=== PATIENT | male | born 1955 | race Hispanic/Latino ===

== ENCOUNTER 2024-10-03 12:00 | Inpatient (IN) | payer OTHER ==
[~2024-10-03] VITALS: Ht 170.2 cm; Wt 76.4 kg
[2024-10-03 13:24] LABS: BASOPHILS # (AUTO) 0.05 K/uL (0.00-0.20); BASOPHILS % (AUTO) 0.6 % (0.0-5.0); EOSINOPHILS # (AUTO) 0.09 K/uL (0.00-0.70); EOSINOPHILS % (AUTO) 1.1 % (0.0-8.0); HEMATOCRIT 40.8 % (42-54); IMMATURE GRANULOCYTE ABSOLUTE 0.04 K/uL (0-1); LYMPHOCYTES # (AUTO) 1.2 K/uL (1.0-4.8); LYMPHOCYTES % (AUTO) 15.3 % (21.0-51.0); MEAN CORPUSCULAR HEMOGLOBIN 31.7 pg (27.0-33.0); MEAN CORPUSCULAR HGB CONC 34.3 g/dL (32.0-36.0); MEAN CORPUSCULAR VOLUME 92.3 fL (79-99); MONOCYTES # (AUTO) 0.8 K/uL (0.1-1.0); MONOCYTES % (AUTO) 9.6 % (3.0-13.0); NEUTROPHILS # (AUTO) 5.8 K/uL (1.8-7.7); NEUTROPHILS % (AUTO) 72.9 % (40.0-77.0); PLATELET COUNT (AUTO) 321 K/uL (130-400); RED BLOOD CELL COUNT(AUTO) 4.42 MIL/uL (4.50-6.20); RED CELL DISTRIBUTION WIDTH 13.3 % (11.0-15.5); WHITE BLOOD COUNT (AUTO) 7.9 K/uL (4.8-10.8)
[2024-10-03 13:33] VITALS: BP 133/63; PULSE 81; RESP 18; TEMP 97.8
[2024-10-03 13:38] LABS: INR 0.96 (0.85-1.15); PROTHROMBIN TIME 10.4 SEC (9.6-11.6)
[2024-10-03 13:40] LABS: PARTIAL THROMBOPLASTIN TIME 25.9 SEC (26.3-35.5)
[2024-10-03 13:51] LABS: ALBUMIN 3.7 g/dL (3.5-5.0); BILIRUBIN,TOTAL 0.4 mg/dL (0.2-1.0); CREATININE 1.1 mg/dL (0.5-1.3)
[2024-10-03] MEDS ORDERED: ASPI-1443 PO (14:09)
[2024-10-03] MEDS ORDERED: ATOR40TA69 PO (14:09)
[2024-10-03] MEDS ORDERED: TAMS-1 PO (14:09)
[2024-10-03] MEDS ORDERED: CYAN50009 PO (14:09)
[2024-10-03] MEDS ORDERED: GLIP5TAB15 PO (14:09)
[2024-10-03] MEDS ORDERED: LEVO75CA5 PO (14:09)
[2024-10-03] MEDS ORDERED: LISI5TAB21 PO (14:09)
[2024-10-03] MEDS ORDERED: METF-446 PO (14:09)
[2024-10-03] MEDS ORDERED: ERGO500093 PO (14:09)
--- NOTE | 2024-10-03 21:42 | EKG ---
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
--- NOTE | 2024-10-06 12:27 | NUR ---
RE: EKG REPORTED EKG RESULTS TO DR CARLOS, NO NEW ORDERS RECEIVED.
[2024-10-07] VITALS (17 sets, daily range): BP systolic 132–202; BP diastolic 65–86; PULSE 63–95; RESP 15–18; TEMP 96.9–97.3
[2024-10-07] MEDS ORDERED: INVANZ 1GM+NS 50ML IVPB 50 ML IV SCH (06:00)
[2024-10-07] MEDS ORDERED: INVANZ 1GM+NS 50ML IVPB 50 ML IV ONE (08:30)
[2024-10-07] MEDS: LACTATED RINGERS 1000ML 1,000 ML IV ONE (10:52)
[2024-10-07] MEDS: MEROPENEM 1 GM VIAL ONE (10:52)
[2024-10-07] MEDS ORDERED: BUPIvacaine/PF 0.25% 30ML VIAL IJ ONE (12:56)
[2024-10-07] MEDS ORDERED: LIDOCAINE 1%-EPI 1:100,000 20 ML VIAL ONE (12:57)
[2024-10-07] MEDS ORDERED: MIDAZOLAM HCL 1 MG/ML 2ML VIAL ONE (13:40)
[2024-10-07] MEDS ORDERED: ondanSETRON 4MG INJ ONE (13:40)
[2024-10-07] MEDS ORDERED: rocuRONium bROMide 10MG/1ML 5ML VL ONE (13:40)
[2024-10-07] MEDS ORDERED: proPOFol 10 MG/ML 20ML VIAL IV ONE (13:40)
[2024-10-07] MEDS ORDERED: LIDOCAINE PF 100MG/5ML (2%) SYRINGE 5ML ONE (13:41)
[2024-10-07] MEDS ORDERED: FENTanyl CITRate PF 50 MCG/1 ML 5ML AMP IV ONE (13:41)
[2024-10-07] MEDS ORDERED: GLYCOPYRROLATE 0.2 MG/ML 5 ML VIAL ONE (13:45)
[2024-10-07] MEDS ORDERED: NEOSTIGMINE METHYLSULFATE 1MG/ML IV ONE (13:45)
[2024-10-07] MEDS ORDERED: SUGAMMADEX SODIUM 200 MG/2 ML VIAL IV ONE (15:12)
[2024-10-07] MEDS: LAbetaLOL 20MG VIAL ONE (15:58)
[2024-10-07] MEDS: MEPERIDINE-PF 25 MG/ML SYG ONE (16:11)
--- NOTE | 2024-10-07 16:23 | OP ---
Operative Note: DATE OF PROCEDURE: 10/07/24 SURGEON: ELDER MASON MD MANAGEMENT PROFESSIONAL: None ANESTHESIA: General ANESTHESIOLOGIST/IRRIGATION ENGINEER: IRRIGATION ENGINEER PREOPERATIVE DIAGNOSIS: Rectosigmoid Cancer POSTOPERATIVE DIAGNOSIS: Mid-Low Rectal Cancer PROCEDURE: Diagnostic Laparoscopy Flexible Sigmoidoscopy ESTIMATED BLOOD LOSS: Minimal INDICATIONS: Mr. 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 He was offered surgical management and wished to proceed. Complications, alternatives risk and benefits of the procedure were discussed and include but not limited to infection, bleeding, injury to surrounding structures such as blood vessels nerves and other organs, anastomotic leak, sepsis, need for a stoma, recurrence of disease and the need for additional procedures. He and the daughter voiced understanding and wished to proceed with surgery. All of their questions were answered to their satisfaction. DESCRIPTION OF PROCEDURE: After informed consent was obtained the patient was taken to the operating room and laid in the supine position. Once GETA was achieved, the abdomen was prepped and draped in the usual sterile fashion. A timeout was performed to confirm the correct patient and procedure. Next a veress needle was inserted and confirmed to be intra-abdominal with a saline drop test . Pneumoperitoneum was obtained. Next a 8mm incision was made followed by placement of an 8mm trocar. The camera was inserted and the abdomen was inspected. we then placed the additional robotic trocars. The patient was placed into steep [place]. The sigmoid colon was adherent to the left pelvic sidewall. We carefull examined the distal sigmoid and upper rectum however there was no tattoo appreciated. Given this we performed a flexible sigmoidoscopy which showed a low rectal mass just proximal to the 1st rectal valve at the level of the prostate. The mass was then palpated on JOI and was anterior and firm. Given the location of the lesion within the distal mid rectum anteriorly over the prostate it was decided to not proceed with a resection at this time. We then placed the scope back into the abdomen to confirm hemostasis. The trocars were removed, a vicryl stitch closed the 12mm port site. We closed all skin incisions with monocryl sutures and dermabond was placed as a sterile dressing. The patient tolerated the procedure well and was taken to the recovery room in stable condition. Complications none Specimens: none Counts: reported as correct x2 by nursing staff. Note: I discussed the above in detail with the daughter, we discussed that we n eed to stage the pelvis given he has a distal mid rectal cancer and not a colon or upper rectal cancer. He did have prior XRT for prostate cancer however he would benefit from MRI of the pelvis and Endorectal US to stage the pelvis and likely benefit from Chemotherapy prior to surgery. Patient will also need a temporary stoma given location and prior XRT. The daughter voiced understanding and appreciation for our care. ELDER MASON MD Oct 07, 2024 16:23
--- NOTE | 2024-10-07 17:30 | NUR ---
D/C PT AND DAUGHTER GIVEN D/C INSTRUCTIONS. DAUGHTER VOICED UNDERSTANDING. ABDOMEN FREE FROM BLEEDING OR HEMATOMAS. PT DENIED ANY DISCOMFORT. PT TAKEN OUT VIA W/C DAUGHTER AT SIDE.
== END 2024-10-07 17:30 | disposition home or self-care (01) | DRG 358 ==
LOC: DAHIP 10-07 09:39
PROVIDERS: ADMIT Surgery; ATTEND Surgery
PROC: 0DJD8ZZ Inspection of Lower Intestinal Tract, Via Natural or Artificial Opening Endoscopic (ICD-10-PCS; principal; 2024-10-07 14:25)
PROC: 0WJG4ZZ Inspection of Peritoneal Cavity, Percutaneous Endoscopic Approach (ICD-10-PCS; 2024-10-07 14:25)
DX: C19 Malignant neoplasm of rectosigmoid junction (principal)
CPT/HCPCS: 36415; 45330; 80053; 82948; 85025; 85610; 85730; 86850; 86900; 86901; 93005; A4344; G0378; J1335; J2003; J2175; J2185; J2250; J2405; J2704; J2710; J3010; J3490; J7030; J7120; A4215; A4221; A4222; A4223; A4600; A4649; A4663; A4930; A6260; C1769; J0665

== ENCOUNTER → 2024-10-09 | Outpatient (CLI) | payer OTHER ==
[~2024-10-09] MED LIST: ASPI-1443 PO; ATOR40TA69 PO; CYAN50009 PO; ERGO500093 PO; GADOTERATE MEGLUMINE 10 MMOL/20 ML VIAL IV ONE; GLIP5TAB15 PO; LEVO75CA5 PO; LISI5TAB21 PO; METF-446 PO; TAMS-1 PO
--- NOTE | 2024-10-09 12:23 | HMCIMG ---
MR PELVIS W/WO CON HISTORY: Malignant neoplasm of rectum COMPARISON: None TECHNIQUE: MRI of the pelvis was performed utilizing multiple pulse sequences in axial, coronal and sagittal planes. Patient was given 20 cc of Clariscan through intravenous route. FINDINGS: Left hip muscle atrophy is seen. Bladder is poorly distended. Bladder wall thickening is seen measuring 9.5 mm. There is rectal wall thickening with enhancement measuring 11 mm thickness may be related to neoplastic process. There is no evidence of pelvic adenopathy or ascites. Tiny bilateral hip joint effusions are seen. IMPRESSION: 1. Left hip muscle atrophy. Rectal wall thickening with enhancement measuring 11 mm may be related to neoplastic process. There is no evidence of pelvic adenopathy or ascites.
== END | disposition home or self-care (01) ==
LOC: RAH 09:18
PROVIDERS: ATTEND Surgery
DX: C20 Malignant neoplasm of rectum (principal); M62.58 Muscle wasting and atrophy, not elsewhere classified, other site; N32.89 Other specified disorders of bladder; M25.452 Effusion, left hip; M25.451 Effusion, right hip
CPT/HCPCS: 72197; A9575

== ENCOUNTER → 2025-04-16 | Outpatient (CLI) | payer OTHER ==
[~2025-04-16] MED LIST changes: -LEVO75CA5 PO; +LEVO75CA6 PO; -TAMS-1 PO; +TAMS-55 PO
--- NOTE | 2025-04-16 15:58 | HMCIMG ---
MR PELVIS W/WO CON HISTORY: Malignant neoplasm of rectum COMPARISON: 10/09/2024 TECHNIQUE: MRI of the pelvis was performed utilizing multiple pulse sequences in axial, coronal and sagittal planes. Patient was given 16 cc of Clariscan through intravenous route. FINDINGS: There is hyperintense/enhancing focus measuring 2.8 x 2.5 cm the right anterior rectal wall suspicious for neoplastic process which was also seen on previous study. There is circumferential rectal wall thickening. Prostate gland is borderline enlarged measuring 6 x 3.6%. Bladder wall is thickened measuring 10 mm. There is fatty replacement change of the left hip and left buttock musculature. There is diverticulosis. IMPRESSION: 1. An enhancing focus in the right anterior rectal wall measuring 2.8 x 2.6 cm suggestive of neoplastic process. Circumferential rectal wall thickening is also seen. Enlarged prostate with bladder wall thickening. Findings are grossly unchanged.
== END | disposition home or self-care (01) ==
LOC: RAH 13:53
PROVIDERS: ATTEND Surgery
DX: C20 Malignant neoplasm of rectum (principal); C61 Malignant neoplasm of prostate; N40.0 Benign prostatic hyperplasia without lower urinary tract symptoms; K57.90 Diverticulosis of intestine, part unspecified, without perforation or abscess without bleeding; Z96.642 Presence of left artificial hip joint
CPT/HCPCS: 72197; A9575

== ENCOUNTER → 2025-08-17 | Outpatient (CLI) | payer OTHER ==
[~2025-08-17] VITALS: Ht 170.2 cm; Wt 73.8 kg
[~2025-08-17] MED LIST changes: +CINN500C PO; +ERGO400C PO; -GADOTERATE MEGLUMINE 10 MMOL/20 ML VIAL IV ONE; -LEVO75CA6 PO; +VITA-395 PO
[2025-08-17 14:13] VITALS: BP 100/46; PULSE 85; RESP 18; TEMP 98.2
[2025-08-17 14:30] LABS: IMMATURE GRANULOCYTE ABSOLUTE 0.06 K/uL (0-1); NUCLEATED RED BLOOD CELLS 0.0 % (0.0-0.19); PLATELET COUNT (AUTO) 309 K/uL (130-400); RED BLOOD CELL COUNT(AUTO) 3.88 MIL/uL (4.50-6.20); RED CELL DISTRIBUTION WIDTH 13.5 % (11.0-15.5); WHITE BLOOD COUNT (AUTO) 7.0 K/uL (4.8-10.8)
[2025-08-17 14:37] LABS: INR <= 0.93 (0.85-1.15)
[2025-08-17 14:43] LABS: ASPARTATE AMINOTRANSFERASE 13.0 U/L (10-37); CREATININE 4.0 mg/dL (0.5-1.3); GLOMERULAR FILTR. RATE CALC 15.0 mL/min (>90); GLUCOSE,RANDOM 90.0 mg/dL (70-105); SODIUM SERUM 133.0 mmol/L (136-145); TOTAL PROTEIN, SERUM 7.9 g/dL (6.0-8.3); UREA NITROGEN, BLOOD 73.0 mg/dL (7-18)
--- NOTE | 2025-08-17 15:10 | NUR ---
RE: POTASSIUM CALLED DR KHAN AND REPORTED POTASSIUM 6.0. RECEIVED ORDERS TO SEND PATIENT TO ER. CALLED PATIENT, NO ANSWER. LEFT MESSAGE.
--- NOTE | 2025-08-17 16:22 | EKG ---
[facility] Test Date: 2025-08-17 Test Time: 13:57:41 Pat Name: YOVANY TURNER Department: Patient ID: [facility] [place]-[id number] Room: Gender: M Jewel Oliving Machine Operator: [id number] : 1955 Requested By: HELGA KHAN Order Number: [id number] Reading MD: Ángela Sidhu Measurements Intervals [place] Rate: 80 P: 67 [place]: 193 QRS: 53 QRSD: 109 T: -58 QT: 358 QTc: 413 Interpretive Statements Sinus rhythm Compared to ECG 06/18/2025 15:00:38 Left ventricular hypertrophy no longer present Early repolarization no longer present Electronically Signed On 08-19-2025 09:33:43 CDT by Ángela Sidhu Please click the below link to view image of tracing.
== END | disposition home or self-care (01) ==
LOC: DAH 13:31 → EDSTATUS 08-19 07:00
PROVIDERS: ATTEND Surgery
DX: Z93.2 Ileostomy status (principal)
CPT/HCPCS: 36415; 80053; 82948; 85025; 85610; 85730; 86850; 86900; 86901; 93005

== ENCOUNTER 2025-08-28 08:00 | Inpatient (IN) | payer OTHER ==
[~2025-08-28] VITALS: Ht 170.2 cm; Wt 72.6 kg
[~2025-08-28 08:00] MED LIST changes: -CINN500C PO; -ERGO400C PO; -VITA-395 PO
[2025-08-28 09:51] LABS: IMMATURE GRANULOCYTE ABSOLUTE 0.07 K/uL (0-1); NUCLEATED RED BLOOD CELLS 0.0 % (0.0-0.19); PLATELET COUNT (AUTO) 233 K/uL (130-400); RED BLOOD CELL COUNT(AUTO) 3.32 MIL/uL (4.50-6.20); RED CELL DISTRIBUTION WIDTH 14.2 % (11.0-15.5); WHITE BLOOD COUNT (AUTO) 7.9 K/uL (4.8-10.8)
[2025-08-28 10:05] LABS: ASPARTATE AMINOTRANSFERASE 13.0 U/L (10-37); CREATININE 1.4 mg/dL (0.5-1.3); GLOMERULAR FILTR. RATE CALC 53.0 mL/min (>90); GLUCOSE,RANDOM 131.0 mg/dL (70-105); SODIUM SERUM 139.0 mmol/L (136-145); TOTAL PROTEIN, SERUM 7.0 g/dL (6.0-8.3); UREA NITROGEN, BLOOD 23.0 mg/dL (7-18)
[2025-08-28 10:06] LABS: INR <= 0.93 (0.85-1.15)
[2025-08-28 10:14] VITALS: BP 147/57; PULSE 82; RESP 18; TEMP 98.1
--- NOTE | 2025-08-28 10:25 | EKG ---
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
--- NOTE | 2025-08-28 12:00 | NUR ---
RE: EKG REPORTED EKG RESULTS TO DR CARLOS. NO NEW ORDERS RECEIVED, OK TO PROCEED.
--- NOTE | 2025-08-28 14:04 | NUR ---
RE: LABS REPORTED HGB 9.9/HCT 29.9 TO MARIANNE/DR YOANNA CRUZ. NO NEW ORDERS RECEIVED.
[2025-08-31] VITALS (30 sets, daily range): BP systolic 100–145; BP diastolic 40–75; PULSE 60–82; RESP 12–18; TEMP 97–98.1; O2SAT 97–99
[2025-08-31] MEDS ORDERED: GLYCOPYRROLATE 0.2 MG/ML 5 ML VIAL ONE (08:03)
[2025-08-31] MEDS ORDERED: SUCCINYLCHOLINE CHLORIDE 20 MG/ML 10 ML VIAL ONE (08:03)
[2025-08-31] MEDS ORDERED: LIDOCAINE PF 100MG/5ML (2%) SYRINGE 5ML ONE (08:03)
[2025-08-31] MEDS ORDERED: NEOSTIGMINE METHYLSULFATE 1MG/ML IV ONE (08:03)
[2025-08-31] MEDS ORDERED: MIDAZOLAM HCL 1 MG/ML 2ML VIAL ONE (08:04)
[2025-08-31] MEDS ORDERED: LIDOCAINE HCL 1% 10 ML VIAL ONE (08:37)
[2025-08-31] MEDS ORDERED: LIDOCAINE HCL 1% 20 ML VIAL ONE (08:37)
[2025-08-31] MEDS: LIDOCAINE 1%-EPI 1:100,000 20 ML VIAL ONE (09:39)
[2025-08-31] MEDS: LIDOCAINE 1%-EPI 1:100,000 20 ML VIAL IJ ONE (09:39)
[2025-08-31] MEDS ORDERED: HYDROcodone/APAP 5/325 1 TAB TABLET PO PRN (10:00)
--- NOTE | 2025-08-31 10:02 | OP ---
Operative Note: DATE OF PROCEDURE: 08/31/25 SURGEON: PERLA CRUZ MD PROCESS ENGINEERING TECHNICIAN: [None] ANESTHESIA: [] General plus local PREOPERATIVE DIAGNOSIS: [Ileostomy status, Rectal cancer.] POSTOPERATIVE DIAGNOSIS: [Same.] SYNOPSIS: [Small parastomal hernia, ileostomy in right upper quadrant.] PROCEDURE: [Closure of enterostomy, small bowel, with small bowel resection anastomosis.] ESTIMATED BLOOD LOSS: [5 ML] INDICATIONS: [70-year-old male who underwent a low anterior resection and creation of loop ileostomy who presents now for ileostomy closure. His workup was negative for leaks or fistulas. We had a long discussion about risks were abrasions and function after an ileostomy closure and granted consent. ] DESCRIPTION OF PROCEDURE: [The patient was identified in the holding area transferred to the OR placed supine on the operative table. Venodyne boots were placed, time-out conducted, after general anesthesia was given was prepped and draped in the usual sterile fashion. Peristomal incision was created and the small bowel was dissected of the fashion. Small parastomal hernia was identified. The abdominal cavity was entered and the bowel eviscerated. The mesentery was then sequentially taken with the LigaSure device as a small bowel resection was decided to be performed to achieve good lumen and great perfusion to the anastomosis. After the mesentery was taken a [id number] anastomosis was constructed with a GIA75 and a 2nd firing transected the ileostomy and the small bowel and was passed off as specimen. Scratch suture was placed and the staple line reinforced with 3-0 Vicryl sutures. Bowel was returned the abdominal cavity. We changed gloves and instruments and the fascia was closed 1. PDS in a running fashion. The wound was profusely irrigated with saline and Betadine then the dermis was closed in a pursestring fashion with a 2-0 Vicryl suture and the wound was packed. Counts were done and correct. There were no complications. I was present and scrubbed for the entire case.] PERLA ALLEN MD Aug 31, 2025 10:02
[2025-08-31] MEDS: SUGAMMADEX SODIUM 200 MG/2 ML VIAL IV ONE (11:08)
[2025-08-31] MEDS: INVANZ 1GM+NS 50ML IVPB 50 ML IV ONE (11:08)
[2025-08-31] MEDS: 0.9%NACL 1000ML 1,000 ML IV ONE (11:08)
--- NOTE | 2025-08-31 11:08 | NUR ---
PATIENT ARRIVED TO ROOM 420 FROM PACU WITH NURSE ARMANDO MAS. ABDOMINAL DRESSING INTACT WITH SOME DRAINAGE NOTICED AND MARKED. PATIENT DENIES ANY PAIN OR DISCOMFORT.POST OP VITALS STARTED. BED LOCKED AND LOWEST POSITION WITH THREE SIDE RAILS UP WITH BED ALARM ON. CALL LIGHT AND PHONE WITHIN REACH. IV FLUIDS RUNNING TO IV ON RIGHT HAND.
[2025-08-31] MEDS: LACTATED RINGERS 1000ML 1,000 ML IV SCH (14:21)
--- NOTE | 2025-08-31 14:55 | CONS ---
[facility] CONSULTATION NOTE Date of Service: Aug 31, 2025 Reason for Consultation: [ Medical Management] Requesting Physician: [ Dr. Baltazar Johnson ] HISTORY OF PRESENT ILLNESS: Date of service: 08/31/2025, patient was seen in room 420 70-year-old male with history of hypertension, hyperlipidemia, type 2 diabetes mellitus, CKD stage 3, history of rectal cancer status post neoadjuvant chemotherapy with prior history of loop ileostomy in 06/[address] Baltazar Johnson status post reversal of ileostomy today, patient underwent closure of enterostomy, small bowel with small bowel resection and and anastomosis today. Patient was seen post operatively, patient denies any significant chest pain, pleurisy, shortness of breath, wheezing, abdominal pain, nausea and vomiting. Patient states that he was recently hospitalized in [facility] for acute on chronic renal failure and hyperkalemia in his renal function has stabilized. His last creatinine was close to 1.4 On 08/28/2025. Patient states that currently his pain is controlled and denies any significant discomfort otherwise. Hospitalist service was consulted for medical management of the patient. We will follow this patient closely postoperatively. Patient states that he smokes about five cigarettes daily and he has long-term history of smoking for greater than 30 years. He denies any previous history of COPD, emphysema, bronchitis, asthma etc. denies any previous pulmonary issues otherwise. Patient reports that he is working on quitting smoking. REVIEW OF SYSTEMS CONSTITUTIONAL: Denies fevers, chills, or night sweats. No unintentional weight loss reported. NEUROLOGICAL: Denies headache, amaurosis fugax, motor weakness, sensory deficit, vertigo/spinning sensation, gait abnormalities, or tremors. ENT: No hearing loss, otalgia, otorrhea, rhinitis, rhinorrhea, hoarseness, or sore throat. CARDIOVASCULAR: Denies any exertional angina, dyspnea on exertion, orthopnea, paroxysmal nocturnal dyspnea, palpitations, life-threatening arrhythmias, claudication. PULMONARY: Denies any shortness of breath, cough, phlegm/sputum, hemoptysis, pleuritic chest pain. SLEEP: Denies morning headaches, daytime somnolence or napping. Denies difficulty falling asleep, staying asleep, waking from sleep. Denies knowledge of snoring. GASTROINTESTINAL: Denies any type of dysphagia to either liquids or solids. Denies nausea, vomiting, pyrosis, early satiety, abdominal pain, diarrhea, constipation, or changes in stool consistency or caliber. Denies coffee-ground emesis, hematemesis, hematochezia, or melanotic stools. GENITOURINARY: Denies frequency, urgency, nocturia, hematuria or incontinence (Storage/Irritative symptoms.) Low urinary stream, straining to void, urinary intermittency or hesitancy, splitting of the voiding stream, terminal dribbling. ENDOCRINOLOGIC: Denies polyuria, polydipsia, polyphagia or heat/cold intolerances. HEMATOLOGIC: Denies thrombophilia/previous clots, or coagulopathy/bleeding disorders. ONCOLOGIC: Denies personal history of malignancy. DERMATOLOGIC: Denies rashes or pruritus. PSYCHIATRIC: Denies any suicidal or homicidal ideation. Denies hallucinations. PAST MEDICAL HISTORY: Hypertension, hyperlipidemia, stroke in 2012, type 2 diabetes mellitus, history of prostate cancer, history of malignant neoplasm involving the rectum status post neoadjuvant therapy and ileostomy in 06/2025 PAST SURGICAL HISTORY: Loop ileostomy in 06/2024 Right shoulder surgery 2005 Colon surgery 08/05/2024 Upper EUS 10/21/2024 Lower EUS 04/24/2025 PAST SOCIAL HISTORY: Reports smoking five cigarettes daily for long time, denies alcohol use or illicit drug use FAMILY HISTORY: Two sons, one daughter No family history of GI malignancy Coded Allergies: No Known Drug Allergies (Unverified Allergy, Unknown, 10/03/24) PHYSICAL EXAM GENERAL APPEARANCE: The patient is awake, alert, and oriented, in no acute car diopulmonary distress. NEUROLOGICAL: Cranial nerves II-XII grossly intact. Motor is 5/5 in bilateral upper and lower extremities proximal to distal. No sensory deficits. HEENT: Face is symmetric. Pupils are equal and reactive. Extraocular movements are intact. NECK: Supple. No JVD. No thyromegaly. No submental, submandibular, pre- /postauricular, occipital or supraclavicular lymphadenopathy. CHEST: Normal chest expansion. No Telemetry. LUNGS: Absence of any rales, rhonchi or any wheezing. CARDIOVASCULAR: Regular. S1 and S2 normal. No appreciable rubs, murmurs or gallops. ABDOMEN: Soft, surgical site noted to be in dressing, no active bleeding noted from the surgical site : Deferred. No Cotter. EXTREMITIES: Non-edematous and not cyanotic. No clubbing. Good capillary refill. SKIN: No skin breakdown. Vital Sign (Last 24 Hours) 08/31/25 08/31/25 11:08 12:38 Temp 97.7 Pulse 71 Resp 18 B/P (MAP) 125/58 Pulse Ox 98 O2 Delivery Room Air O2 Flow Rate 0 FiO2 21 LABS: Laboratory: Test 08/31/25 10:01 Range/Units Whole Blood Glucose 142 H 70-110 MG/DL DIAGNOSTICS / RADIOLOGY: SERVICE 6 REASON: Check pulm status ORDERING PHYSICIAN: SABI YEH NP PROCEDURE: CXR1VW - CHEST 1VW EXAM: XR Chest, 1 ViewCLINICAL HISTORY: 70-year-old male to check pulmonary status.COMPARISON: XR Chest from 08/18/2025 at 5:31 PM.FINDINGS: LUNGS: No consolidation. PLEURAL SPACES: No pleural effusion or pneumothorax. HEART: The heart size is normal. BONES: No acute osseous abnormality. IMPRESSION: * No acute cardiopulmonary pathology. * Similar to prior findings of XR chest from 08/18/2025 at 5:31 PM. /[place] DICTATED BY: DAVID DE LA CRUZ MD DATE: 08/19/251950 ELECTRONICALLY SIGNED BY: DAVID DE LA CRUZ MD DATE: 08/19/251950 ASSESSMENT: Status post closure of ileostomy with closure of enterostomy with small-bowel resection and anastomosis by Dr. Baltazar Johnson, 08/31/2025 Hx of rectal cancer status post neoadjuvant chemotherapy followed by Oncology as outpatient, POA History of CKD stage 3, POA Anemia, POA Hypertension, POA Hyperlipidemia, POA Type 2 diabetes mellitus, POA Prior history of stroke in 2012, POA Remote history of prostate cancer status post radiation therapy, POA Long-term history of smoking, POA PLAN: Patient close monitoring in medical-surgical floor under telemetry monitoring continue with IV fluids and postoperative pain control by Dr. Baltazar Johnson We will keep patient on DuoNebs p.r.n. q.6 hours Patient to continue with all his home medications, we will hold metformin while inpatient, we will keep patient on sliding scale insulin a.c. and HS Patient was counseled extensively on quitting smoking, patient verbalized understanding Continue to monitor this patient closely, patient with multiple comorbidities, we will see how patient progresses in the next 24-48 hours All labs will be repeated in the morning We will keep patient on DVT prophylaxis with SCDs and Lovenox, continue with aspirin 81 mg daily due to prior history of stroke We will request consultation with Physical therapy tomorrow We will monitor surgical site closely as well Date of service: 08/31/2025 Plan of care was discussed with patient at bedside, Dino Penny MD Advanced Care Planning: Which of the following were discussed: Hospice care: Yes __ No _X_ Therapeutic options: Yes _X_ No __ Advance directives: Yes _X_ No __ Other discussions: Discussed with who?: Patient Voluntary nature of this service was explained to the patient? Yes _x_ No __ Amount of time spent: 20 minutes (can be from 16 to 44 minutes) Reviewed by Physician?: Yes _x_ No __ (if this service was performed by NPP) DINO PENNY MD Aug 31, 2025 14:55
--- NOTE | 2025-08-31 15:50 | NUR ---
DRESSING ASSESSED BY MYSELF AND DR FINNEGAN DRESSING WITH SMALL AMOUNT OF DRAINAGE NOTED.
--- NOTE | 2025-08-31 20:20 | NUR ---
IS: PT INSTRUCTED ON INCENTIVE SPIROMETER USE AND HOW IT HELPS PREVENT POST OP PNEUMONIA. PT VERBALIZES UNDERSTANDING AND DID RETURN DEMONSTRATION ON IS X 10 REACHING UP TO 2000. PT IS ON ROOM AIR, SPO2-99% NO RESPIRATORY DISTRESS NOTED. DRESSING TO RIGHT ABDOMEN WITH SMALL CIRCLED SEROSANGUINEOUS DRAINAGE NOTED. BILATERAL SCDs IN PLACE, S/R UP X 2, BED ALARM ON.
[2025-09-01] VITALS (10 sets, daily range): BP systolic 105–137; BP diastolic 47–59; PULSE 65–81; RESP 16–20; TEMP 97.7–98.1; O2SAT 94–100
[2025-09-01 05:06] LABS: IMMATURE GRANULOCYTE ABSOLUTE 0.09 K/uL (0-1); NUCLEATED RED BLOOD CELLS 0.0 % (0.0-0.19); PLATELET COUNT (AUTO) 292 K/uL (130-400); RED BLOOD CELL COUNT(AUTO) 3.16 MIL/uL (4.50-6.20); RED CELL DISTRIBUTION WIDTH 14.0 % (11.0-15.5); WHITE BLOOD COUNT (AUTO) 11.8 K/uL (4.8-10.8)
[2025-09-01 05:19] LABS: % IRON SATURATION 30.0 % (30-44); IRON, SERUM 66.0 mcg/dL (65-175)
[2025-09-01 05:37] LABS: CREATININE 1.5 mg/dL (0.5-1.3); GLOMERULAR FILTR. RATE CALC 49.0 mL/min (>90); GLUCOSE,RANDOM 147.0 mg/dL (70-105); SODIUM SERUM 134.0 mmol/L (136-145); UREA NITROGEN, BLOOD 32.0 mg/dL (7-18)
[2025-09-01] MEDS: ENOXAPARIN SODIUM 30 MG/0.3 ML SQ SCH (08:29)
[2025-09-01] MEDS: ASPIRIN 81 MG EC TAB PO SCH (08:29)
[2025-09-01] MEDS: LISINOPRIL 5 MG TABLET PO SCH (08:29)
[2025-09-01] MEDS: MULTIVITAMIN TABLET PO SCH (08:29)
[2025-09-01] MEDS: CYANOCOBALAMIN (VITAMIN B-12) 1,000 MCG TABLET PO SCH (08:29)
[2025-09-01] MEDS: ALBUTEROL 0.083% 2.5 MG/3 ML INH IH ONE (08:32)
[2025-09-01] MEDS ORDERED: NA ZIRCON CYCLOSIL(LOKELMA 10GM) PO ONE (09:00)
[2025-09-01] MEDS: DEXTROSE 50%-WATER 50 ML DISP.SYRIN IV ONE (09:23)
[2025-09-01] MEDS: CALCIUM GLUC 1GM 1 GM in 0.9%NACL 100ML 100 ML IV ONE (09:25)
--- NOTE | 2025-09-01 09:34 | EKG ---
[facility] Test Date: 2025-09-01 Test Time: 08:24:52 Pat Name: YOVANY TURNER Department: [facility] Room: 420 1 Gender: M Director Energy: oscar nunn : 1955 Requested By: TAYLOR MAYERS Order Number: [id number] Reading MD: Ángela Sidhu Measurements Intervals [place] Rate: 68 P: 77 [place]: 194 QRS: -4 QRSD: 110 T: -49 QT: 404 QTc: 429 Interpretive Statements Normal sinus rhythm Minimal voltage criteria for LVH, may be normal variant Inferior infarct , age undetermined Compared to ECG 08/28/2025 09:40:55 Left ventricular hypertrophy now present Atrial premature complex(es) no longer present Myocardial infarct finding still present Electronically Signed On 09-02-2025 10:24:34 CDT by Ángela Sidhu Please click the below link to view image of tracing.
[2025-09-01] MEDS: 0.9%NACL 1000ML 1,000 ML IV SCH (11:11)
[2025-09-01] MEDS: MAGNESIUM 2GM PREMIX 50ML 50 ML IV PRN (11:11)
[2025-09-01] MEDS: NA ZIRCON CYCLOSIL(LOKELMA 10GM) PO ONE (11:11)
--- NOTE | 2025-09-01 12:43 | NUR ---
DCP:HOME Pt currently lives in his home and his son Alfonso Gonzalez [phone] just moved in with him. Pt does have a cane and walker that she uses to ambulate. Pt does not have any home health or provider services. Pt states that he is able to complete ADLs independently. PCP is Dr. Zabala and uses [facility] for any RX needs. At [place] pt will want to go home and family can assist with transportation. Addendum: 09/01/25 at 1245 by GERALDO BUSTILLO SS Amended: Links added.
--- NOTE | 2025-09-01 15:54 | PN ---
[facility] PROGRESS NOTE Date of Service: Sep 01, 2025 Time of Service: 15:37 SUBJECTIVE: 70-year-old male with history of hypertension, hyperlipidemia, type 2 diabetes mellitus, CKD stage 3, history of rectal cancer status post neoadjuvant chemotherapy with prior history of loop ileostomy in 06/[address] Baltazar Johnson status post reversal of ileostomy today, patient underwent closure of e nterostomy, small bowel with small bowel resection and and anastomosis today. Patient was seen post operatively, patient denies any significant chest pain, pleurisy, shortness of breath, wheezing, abdominal pain, nausea and vomiting. Patient states that he was recently hospitalized [place] [facility] [place] acute [place] chronic renal failure and hyperkalemia in his renal function has stabilized. His last creatinine was close to 1.4 On 08/28/2025. Patient states that currently his pain is controlled and denies any significant discomfort otherwise. Hospitalist service was consulted for medical management of the patient. We will follow this patient closely postoperatively. Patient states that he smokes about five cigarettes daily and he has long-term history of smoking for greater than 30 years. He denies any previous history of COPD, emphysema, bronchitis, asthma etc. denies any previous pulmonary issues otherwise. Patient reports that he is working on quitting smoking. 09/01 Patient was examined on the bedside. The patient had surgery yesterday. The patient complained of no chest pain or shortness of blood. Patient is postop day 1. The operation site is clean and covered in dressing The patient had potassium level of 5.8 after which an EKG were ordered that showed no significant abnormalities and the patient was started on Lokelma and lisinopril was stopped. We will recheck potassium in the evening. Patient magnesium was 1.50 therefore the potassium was replaced. REVIEW OF SYSTEMS CONSTITUTIONAL: Denies fevers, chills, or night sweats. No unintentional weight loss reported. NEUROLOGICAL: Denies headache, amaurosis fugax, motor weakness, sensory deficit, vertigo/spinning sensation, gait abnormalities, or tremors. ENT: No hearing loss, otalgia, otorrhea, rhinitis, rhinorrhea, hoarseness, or sore throat. CARDIOVASCULAR: Denies any exertional angina, dyspnea on exertion, orthopnea, paroxysmal nocturnal dyspnea, palpitations, life-threatening arrhythmias, claudication. PULMONARY: Denies any shortness of breath, cough, phlegm/sputum, hemoptysis, pleuritic chest pain. SLEEP: Denies morning headaches, daytime somnolence or napping. Denies difficulty falling asleep, staying asleep, waking from sleep. Denies knowledge of snoring. GASTROINTESTINAL: Denies any type of dysphagia to either liquids or solids. Denies nausea, vomiting, pyrosis, early satiety, abdominal pain, diarrhea, constipation, or changes in stool consistency or caliber. Denies coffee-ground emesis, hematemesis, hematochezia, or melanotic stools. GENITOURINARY: Denies frequency, urgency, nocturia, hematuria or incontinence (Storage/Irritative symptoms.) Low urinary stream, straining to void, urinary intermittency or hesitancy, splitting of the voiding stream, terminal dribbling. ENDOCRINOLOGIC: Denies polyuria, polydipsia, polyphagia or heat/cold intolerances. ONCOLOGIC: History of colorectal cancer PHYSICAL EXAM GENERAL APPEARANCE: The patient is awake, alert, and oriented, in no acute cardiopulmonary distress. NEUROLOGICAL: Cranial nerves II-XII grossly intact. Motor is 5/5 in bilateral upper and lower extremities proximal to distal. No sensory deficits. HEENT: Face is symmetric. Pupils are equal and reactive. Extraocular movements are intact. NECK: Supple. No JVD. No thyromegaly. No submental, submandibular, pre- /postauricular, occipital or supraclavicular lymphadenopathy. CHEST: Normal chest expansion. No Telemetry. LUNGS: Absence of any rales, rhonchi or any wheezing. CARDIOVASCULAR: Regular. S1 and S2 normal. No appreciable rubs, murmurs or gallops. ABDOMEN: Soft, surgical site noted to be in dressing, no active bleeding noted from the surgical site : Deferred. No Cotter. EXTREMITIES: Non-edematous and not cyanotic. No clubbing. Good capillary refill. SKIN: No skin breakdown. Vital Signs (last 8hr) Date Time Temp Pulse Resp B/P (MAP) Pulse Ox O2 Delivery O2 Flow Rate FiO2 09/01/25 11:31 97.7 74 16 111/59 99 Room Air 09/01/25 08:32 69 18 LABS: Laboratory: Test 09/01/25 10:44 09/01/25 04:30 08/31/25 17:26 Range/Units Whole Blood Glucose 230 #H 70-110 MG/DL White Blood Count 11.8 H 4.8-10.8 K/uL Red Blood Count 3.16 L 4.50-6.20 MIL/uL Hemoglobin 9.6 L 14.0-18.0 g/dL Hematocrit 28.0 L 42-54 % Mean Corpuscular Volume 88.6 79-99 fL Mean Corpuscular Hemoglobin 30.4 27.0-33.0 pg Mean Corpuscular Hemoglobin Concent 34.3 32.0-36.0 g/dL Red Cell Distribution Width 14.0 11.0-15.5 % Platelet Count 292 130-400 K/uL Mean Platelet Volume 10.0 7.5-10.5 fL Immature Granulocyte % (Auto) 0.8 0-1 % Neutrophils (%) (Auto) 83.9 H 40.0-77.0 % Lymphocytes (%) (Auto) 6.9 L 21.0-51.0 % Monocytes (%) (Auto) 8.2 3.0-13.0 % Eosinophils (%) (Auto) 0.1 0.0-8.0 % Basophils (%) (Auto) 0.1 0.0-5.0 % Neutrophils # (Auto) 9.9 H 1.8-7.7 K/uL Lymphocytes # (Auto) 0.8 L 1.0-4.8 K/uL Monocytes # (Auto) 1.0 0.1-1.0 K/uL Eosinophils # (Auto) 0.01 0.00-0.70 K/uL Basophils # (Auto) 0.01 0.00-0.20 K/uL Absolute Immature Granulocyte (auto 0.09 0-1 K/uL Nucleated Red Blood Cells 0.0 0.0-0.19 % White Cell Morphology Comment See comments Sodium Level 134 L 136-145 mmol/L Potassium Level 5.8 H 3.5-5.1 mmol/L Chloride Level 103 101-111 mmol/L Carbon Dioxide Level 23 21-32 mmol/L Blood Urea Nitrogen 32 H 7-18 mg/dL Creatinine 1.5 H 0.5-1.3 mg/dL Glomerular Filtration Rate Calc 49 >90 mL/min Random Glucose 147 H 70-105 mg/dL Total Calcium 8.4 L 8.5-10.1 mg/dL Magnesium Level 1.50 L 1.80-2.40 mg/dL Iron Level 66 # 65-175 mcg/dL Total Iron Binding Capacity 220 L 250-450 mcg/dL Percent Iron Saturation 30.0 30-44 % Ferritin 93 30-400 ng/mL Bedside Glucose Comment Notified Nurse Current Medications Medications (Trade) Dose Ordered Sig/Tiffanie Route PRN Reason Start Time Stop Time Status Last Admin Dose Admin Acetaminophen/ Hydrocodone Bitart (NORco 5/325MG) 1 tab Q4H PRN PO MODERATE PAIN (4-6) 08/31/25 10:00 09/05/25 09:59 Albuterol (DUOneb) 1 udvial Q6H PRN IH SHORTNESS OF BREATH 08/31/25 15:00 09/30/25 14:59 Aspirin (Aspirin 81mg Ec Tab) 81 mg DAILY PO 09/01/25 09:00 10/01/25 08:59 09/01/25 08:29 81 MG Atorvastatin Calcium (LIPItor 40MG) 80 mg HS PO 08/31/25 21:00 09/30/25 20:59 08/31/25 20:35 80 MG Enoxaparin Sodium (Lovenox) 30 mg DAILY SQ 09/01/25 09:00 10/01/25 08:59 09/01/25 08:29 30 MG Hydralazine HCl (APRESOLine 20MG INJ) 5 mg Q6H PRN IV ADMINISTER FOR SBP > 160 08/31/25 16:00 09/30/25 15:59 Insulin Human Regular (humuLIN R 100 UNIT/ML 3ML) INSULIN SLIDING SCAL... ACHS SQ 08/31/25 16:30 09/30/25 16:29 09/01/25 11:21 4 UNIT Lactated Ringer's 1,000 ml @ 75 mls/hr [id number] IV 08/31/25 10:00 09/01/25 08:52 DC 09/01/25 02:45 75 MLS/HR Lisinopril (Prinivil 5mg) 5 mg DAILY PO 09/01/25 09:00 09/01/25 09:18 DC 09/01/25 08:29 5 MG Magnesium Sulfate 50 ml @ 0 mls/hr PROTOCOL PRN IV MAGNESIUM PROTOCOL 09/01/25 10:30 10/01/25 10:29 09/01/25 11:11 25 MLS/HR Morphine Sulfate (morPHINE 4MG SYG) 4 mg Q3H PRN IV SEVERE PAIN (7-10) 08/31/25 10:00 09/07/25 09:59 Multivitamins Therapeutic (Multivitamin Tablet) 1 tab DAILY PO 09/01/25 09:00 10/01/25 08:59 09/01/25 08:29 1 TAB Ondansetron HCl (zoFRAN 4MG INJ) 4 mg Q4H PRN IVP NAUSEA 08/31/25 10:00 09/30/25 09:59 Sodium Polystyrene Sulfonate (kayEXALate 15 GM/60 ML) 15 gm Q2H PO 09/01/25 08:30 09/01/25 09:18 DC Sodium Chloride 1,000 ml @ 75 mls/hr [id number] IV 09/01/25 09:00 10/01/25 08:59 09/01/25 11:11 75 MLS/HR Tamsulosin HCl (FloMAX) 0.4 mg DAILY PO 09/01/25 09:00 10/01/25 08:59 09/01/25 08:29 0.4 MG Vitamin B Complex (Vitamin B-12) 500 mcg DAILY PO 09/01/25 09:00 10/01/25 08:59 09/01/25 08:29 500 MCG DIAGNOSTICS / RADIOLOGY: [ ] ASSESSMENT: Status post closure of ileostomy with closure of enterostomy with small-bowel resection and anastomosis by Dr. Baltazar Johnson, 08/31/2025 Hx of rectal cancer status post neoadjuvant chemotherapy followed by Oncology as outpatient, POA History of CKD stage 3, POA Anemia, POA Hypertension, POA Hyperlipidemia, POA Hyperkalemia Type 2 diabetes mellitus, POA Prior history of stroke in 2012, POA Remote history of prostate cancer status post radiation therapy, POA Long-term history of smoking, POA PLAN: Hyperkalemia Potassium today was 5.8 Patient was given Lokelma Repeat potassium in the evening History of CKD stage 3 Creatinine 1.5 Nephrology consulted Status post closure of ileostomy with closure of enterostomy with small-bowel resection and anastomosis by Dr. Baltazar Johnson Patient on morphine and hydrocodone for pain as per need Monitoring patient PHYSICIAN STATEMENT I was present with the resident during the History and Physical exam and I have reviewed the resident's note. This case was discussed with the resident and I agree with the history, physical exam and medical decision making as documented. Additions/exceptions/observations were directly added to the notes. Eduardo Del Cid MD, SYED M MD Sep 01, 2025 15:54
--- NOTE | 2025-09-01 16:00 | NUR ---
DRESSING CHANGE PERFORMED TO ABDOMINAL SURGICAL SITE ,WICK PACKING NOTED AND 2 INCHES PULLED OUT AND CUT OFF LEAVING ONE INCH EXTERNALLY AT INSERTION SITE NEW DRESSING APPLIED.,SON INSTRUCTED ON DRESSING CHANGE TO ABDOMINAL SITE (PREVIOUS OSTOMY LOCATION NOW CLOSED WITH WICK PACKING AND EXTERNAL DRESSING.SON PRESENT,STATES WILL BE ABLE TO PERFORM DAILY DRESSING CHANGES AT HOME.
[2025-09-01] MEDS ORDERED: PHARMACY COMMUNICATION 1 EACH EACH MISC SCH (16:30)
--- NOTE | 2025-09-01 21:33 | PN ---
[facility] PROGRESS NOTE Date of Visit: Sep 01, 2025 Time of Visit: 1456 Events / Notes: [70 year old male with ileostomy status and history of rectal cancer who underwent a closure of enterostomy, small bowel, with small bowel resection anastomosis. Patient's VSS. He has tolerated clear fluids without any n/v. BBS are clear. Abdomen is soft and not distended. Active BS are present and he is passing flatus. Stoma site dressing with dry stain. He is voiding without difficulties Information on wound care given to patient and son who is at bedside. Both verbalized understanding and agreement. Review of Systems: CONSTITUTIONAL: No malaise or change in sensation of wellbeing. ENMT: No rhinorrhea, otorrhea, sinus pain, ear ache. CARDIOVASCULAR: No angina, palpitations, orthopnea or paroxysmal dyspnea. RESPIRATORY: No SOB. GASTROINTESTINAL: No abdominal pain, nausea, vomiting, diarrhea, hematemesis, melena or change in the patient's habitual bowel movements consistency/number. GENITOURINARY: No dysuria, hematuria or change in bladder continence. MUSCULOSKELETAL: No new muscle pain or decrease in muscular strength. No new joint swelling, redness or tenderness. SKIN: No new rash. Physical Exam: GEN: Awake, alert, oriented in person, time and place, and in no acute distress. HEENT: No rhinorrhea. Oral pharyngeal mucosa is pink, moist and within normal limits. CHEST: Lung auscultation revealed normal breath sounds bilaterally. CARDIAC:Heart sounds are regular. ABD: Soft, non-tender and not distended. No peritoneal signs on palpation. Normal bowel sounds. Stoma site incision dressing with dry stain. EXT: No cyanosis or clubbing. No edema. SKIN: Intact. No rashes. NEURO: Alert and oriented to name, place and person.No focal motor deficits. Normal speech. Vital Signs (last 8hr) Date Time Temp Pulse Resp B/P (MAP) Pulse Ox O2 Delivery O2 Flow Rate FiO2 09/01/25 20:00 98.1 81 20 137/47 97 Room Air 09/01/25 18:38 78 18 N/A Room Air 21 09/01/25 17:45 97.9 75 16 114/58 99 Room Air Laboratory: [ ] Laboratory: Test 09/01/25 21:05 09/01/25 16:50 09/01/25 04:30 08/31/25 17:26 Range/Units Whole Blood Glucose 179 H 70-110 MG/DL Potassium Level 4.8 3.5-5.1 mmol/L White Blood Count 11.8 H 4.8-10.8 K/uL Red Blood Count 3.16 L 4.50-6.20 MIL/uL Hemoglobin 9.6 L 14.0-18.0 g/dL Hematocrit 28.0 L 42-54 % Mean Corpuscular Volume 88.6 79-99 fL Mean Corpuscular Hemoglobin 30.4 27.0-33.0 pg Mean Corpuscular Hemoglobin Concent 34.3 32.0-36.0 g/dL Red Cell Distribution Width 14.0 11.0-15.5 % Platelet Count 292 130-400 K/uL Mean Platelet Volume 10.0 7.5-10.5 fL Immature Granulocyte % (Auto) 0.8 0-1 % Neutrophils (%) (Auto) 83.9 H 40.0-77.0 % Lymphocytes (%) (Auto) 6.9 L 21.0-51.0 % Monocytes (%) (Auto) 8.2 3.0-13.0 % Eosinophils (%) (Auto) 0.1 0.0-8.0 % Basophils (%) (Auto) 0.1 0.0-5.0 % Neutrophils # (Auto) 9.9 H 1.8-7.7 K/uL Lymphocytes # (Auto) 0.8 L 1.0-4.8 K/uL Monocytes # (Auto) 1.0 0.1-1.0 K/uL Eosinophils # (Auto) 0.01 0.00-0.70 K/uL Basophils # (Auto) 0.01 0.00-0.20 K/uL Absolute Immature Granulocyte (auto 0.09 0-1 K/uL Nucleated Red Blood Cells 0.0 0.0-0.19 % White Cell Morphology Comment See comments Sodium Level 134 L 136-145 mmol/L Chloride Level 103 101-111 mmol/L Carbon Dioxide Level 23 21-32 mmol/L Blood Urea Nitrogen 32 H 7-18 mg/dL Creatinine 1.5 H 0.5-1.3 mg/dL Glomerular Filtration Rate Calc 49 >90 mL/min Random Glucose 147 H 70-105 mg/dL Total Calcium 8.4 L 8.5-10.1 mg/dL Magnesium Level 1.50 L 1.80-2.40 mg/dL Iron Level 66 # 65-175 mcg/dL Total Iron Binding Capacity 220 L 250-450 mcg/dL Percent Iron Saturation 30.0 30-44 % Ferritin 93 30-400 ng/mL Bedside Glucose Comment Notified Nurse Current Medications Medications (Trade) Dose Ordered Sig/Tiffanie Route PRN Reason Start Time Stop Time Status Last Admin Dose Admin Acetaminophen/ Hydrocodone Bitart (NORco 5/325MG) 1 tab Q4H PRN PO MODERATE PAIN (4-6) 08/31/25 10:00 09/05/25 09:59 Albuterol (DUOneb) 1 udvial Q6H PRN IH SHORTNESS OF BREATH 08/31/25 15:00 09/30/25 14:59 Aspirin (Aspirin 81mg Ec Tab) 81 mg DAILY PO 09/01/25 09:00 10/01/25 08:59 09/01/25 08:29 81 MG Atorvastatin Calcium (LIPItor 40MG) 80 mg HS PO 08/31/25 21:00 09/30/25 20:59 09/01/25 20:58 80 MG Enoxaparin Sodium (Lovenox) 30 mg DAILY SQ 09/01/25 09:00 10/01/25 08:59 09/01/25 08:29 30 MG Hydralazine HCl (APRESOLine 20MG INJ) 5 mg Q6H PRN IV ADMINISTER FOR SBP > 160 08/31/25 16:00 09/30/25 15:59 Insulin Human Regular (humuLIN R 100 UNIT/ML 3ML) INSULIN SLIDING SCAL... ACHS SQ 08/31/25 16:30 09/30/25 16:29 09/01/25 18:14 2 UNIT Lactated Ringer's 1,000 ml @ 75 mls/hr [id number] IV 08/31/25 10:00 09/01/25 08:52 DC 09/01/25 02:45 75 MLS/HR Lisinopril (Prinivil 5mg) 5 mg DAILY PO 09/01/25 09:00 09/01/25 09:18 DC 09/01/25 08:29 5 MG Magnesium Sulfate 50 ml @ 0 mls/hr PROTOCOL PRN IV MAGNESIUM PROTOCOL 09/01/25 10:30 10/01/25 10:29 09/01/25 11:11 25 MLS/HR Morphine Sulfate (morPHINE 4MG SYG) 4 mg Q3H PRN IV SEVERE PAIN (7-10) 08/31/25 10:00 09/07/25 09:59 Multivitamins Therapeutic (Multivitamin Tablet) 1 tab DAILY PO 09/01/25 09:00 10/01/25 08:59 09/01/25 08:29 1 TAB Ondansetron HCl (zoFRAN 4MG INJ) 4 mg Q4H PRN IVP NAUSEA 08/31/25 10:00 09/30/25 09:59 Pharmacy Profile Note (Lace Assessment) 1 each AD MISC 09/01/25 16:30 09/01/25 16:33 DC Sodium Polystyrene Sulfonate (kayEXALate 15 GM/60 ML) 15 gm Q2H PO 09/01/25 08:30 09/01/25 09:18 DC Sodium Chloride 1,000 ml @ 75 mls/hr [id number] IV 09/01/25 09:00 10/01/25 08:59 09/01/25 11:11 75 MLS/HR Tamsulosin HCl (FloMAX) 0.4 mg DAILY PO 09/01/25 09:00 10/01/25 08:59 09/01/25 08:29 0.4 MG Vitamin B Complex (Vitamin B-12) 500 mcg DAILY PO 09/01/25 09:00 10/01/25 08:59 09/01/25 08:29 500 MCG Diagnostics / Radiology: [COPY/PASTE HERE IF NO REPORTS PLEASE DELETE SECTION] Assessment: [ Ileostomy status History of rectal cancer] Plan: Case discussed with Dr. Ledesma [ Advance diet Encourage ambulation Encourage I/S exercises Pain meds as needed Plan for disposition in the next 24-48 hours Please call with questions, concerns, and change in clinical status ] KIMBERLY [employer] Sep 01, 2025 21:33
[2025-09-02] VITALS (7 sets, daily range): BP systolic 116–129; BP diastolic 46–65; PULSE 68–80; RESP 18; TEMP 98.1–99; O2SAT 96–98
[2025-09-02 00:08] LABS: APPEARANCE,URINE CLEAR (CLEAR); GLUCOSE, URINE (UA) NEGATIVE (NEGATIVE); LEUKOCYTE ESTERASE ,URINE NEGATIVE Leu/uL (NEGATIVE); NITRATE,URINE NEGATIVE (NEGATIVE); OCCULT BLOOD,URINE NEGATIVE (NEGATIVE)
[2025-09-02 00:11] LABS: ADD UA MICROSCOPIC NO
--- NOTE | 2025-09-02 01:54 | CONS ---
NEPHROLOGY CONSULTATION REASON FOR CONSULTATION: Renal failure. HISTORY OF PRESENT ILLNESS: A 70-year-old with multiple medical problems -- diabetes, hypertension, CKD, rectal cancer, previous ileostomy and the patient has reversal of ileostomy done recently. The patient has elevated BUN and creatinine for which we have been consulted. The patient has low magnesium and also low potassium. Multiple other comorbidities are present. No other associated findings. No other aggravating or relieving factors. PAST MEDICAL HISTORY: Significant for hypertension, stroke, hyperlipidemia, diabetes, prostate cancer, rectal cancer, previous neoadjuvant chemotherapy. PAST SURGICAL HISTORY: Ileostomy, ileostomy takedown now, shoulder surgery, colon surgery, endoscopic ultrasound. ALLERGIES: No allergies. SOCIAL HISTORY: The patient is a smoker. No alcohol or drug abuse. FAMILY HISTORY: Negative for present contacts. REVIEW OF SYSTEMS: CONSTITUTIONAL: With no fevers, chills, or rigors. HEENT: With no headache, sore throat, difficulty swallowing. No new vision complaints. RESPIRATORY: No cough, expectoration, hemoptysis or pleuritic pain. CARDIOVASCULAR: No orthopnea or PND. GASTROINTESTINAL: Negative for nausea or vomiting. The patient does have underlying ileostomy and ileostomy takedown. GENITOURINARY: Negative for hematuria. DERMATOLOGIC: No rashes, pruritus or skin lesion. NEUROLOGIC: No seizure or syncope. ENDOCRINE: No polyuria, polydipsia, or polyphagia. PSYCHIATRIC: Review is negative for anxiety, depression, or hallucinations. LYMPHATIC AND HEMATOPOIETIC: No bleeding tendencies or swelling noted in lymph node areas. PHYSICAL EXAMINATION: GENERAL: Pale, no other distress or deformities. Lying in bed. VITAL SIGNS: Blood pressure has been 122/58, pulse 66, respiratory rate is 16. HEENT: Head is atraumatic, normocephalic. Pupils are round and reactive. Sclerae anicteric, conjunctivae not pale. Oral mucosa is not dry. NECK: Supple with no masses or bruits. Thyroid is palpable. CHEST: Shows equal thoracic percussion, note being resonant in all areas. CARDIAC: Regular rhythm, no rub, no S3 or S4. No parasternal heave. ABDOMEN: No guarding or tenderness. Bowel sounds are normoactive. No free fluid. EXTREMITIES: No edema and no cyanosis or clubbing. NEUROLOGIC: Awake, alert, nonfocal. LABORATORY DATA: Labs have been reviewed. Labs have shown low hemoglobin 9.6, hematocrit 28. Chemistries have been reviewed. The patient has a BUN of 32, creatinine 1.5, elevated potassium of 5.8, low sodium of 134, low magnesium of 1.5. IMAGING STUDIES: I reviewed the imaging studies personally. Previous x-rays were reviewed. PROBLEMS: 1. Acute renal failure. 2. Hyperkalemia. 3. Hyponatremia. 4. Underlying hypomagnesemia. 5. Ileostomy before and now ileostomy takedown. 6. The patient has underlying history of rectal cancer. 7. Diabetes. 8. Hyperlipidemia. 9. Hypertension. 10. History of prostate cancer. 11. The patient is status post closure of ileostomy, underlying CKD, underlying stroke in the past, and history of smoking. PLAN AND RECOMMENDATIONS: 1. The patient will maintain hydration. 2. Patient's potassium level will need close monitoring. 3. Patient has telemetry monitoring being done. 4. IV pain medicine could be Dilaudid 0.5 mg q. 6. 5. Insulin coverage for diabetes. 6. Follow-up labs including CBC and CMP. 7. The patient will get iron studies and ferritin. Please avoid nonsteroidal drugs and nephrotoxics. 8. Please avoid contrast. I have reviewed all the imaging studies personally, previous imaging studies from the abdomen. X-ray shows no acute abnormalities. I have discussed with his team physician. We have reviewed the old external records in detail including consultation before. We have reviewed the labs before and followup labs have been ordered. Condition is critical, guarded. I thank you for letting me participate in the care of this patient. TID: [id number] RECEIPT: [id number]
[2025-09-02 02:56] LABS: CREATININE,URINE RANDOM 66.59 mg/dL (30-135)
[2025-09-02 04:47] LABS: IMMATURE GRANULOCYTE ABSOLUTE 0.04 K/uL (0-1); NUCLEATED RED BLOOD CELLS 0.0 % (0.0-0.19); PLATELET COUNT (AUTO) 245 K/uL (130-400); RED BLOOD CELL COUNT(AUTO) 3.02 MIL/uL (4.50-6.20); RED CELL DISTRIBUTION WIDTH 14.5 % (11.0-15.5); WHITE BLOOD COUNT (AUTO) 7.4 K/uL (4.8-10.8)
[2025-09-02 05:04] LABS: % IRON SATURATION 10.9 % (30-44); IRON, SERUM 23.0 mcg/dL (65-175)
[2025-09-02 05:27] LABS: ASPARTATE AMINOTRANSFERASE 11.0 U/L (10-37); CREATININE 1.2 mg/dL (0.5-1.3); GLOMERULAR FILTR. RATE CALC 64.0 mL/min (>90); GLUCOSE,RANDOM 142.0 mg/dL (70-105); PHOSPHORUS 3.9 mg/dL (2.5-4.9); SODIUM SERUM 140.0 mmol/L (136-145); TOTAL PROTEIN, SERUM 6.2 g/dL (6.0-8.3); UREA NITROGEN, BLOOD 20.0 mg/dL (7-18)
--- NOTE | 2025-09-02 14:29 | PN ---
NEPHROLOGY PROGRESS NOTE Date/Time Patient Seen: Sep 02, 2025 SUBJECTIVE: This is 70-year-old male with history of hypertension, hyperlipidemia, type 2 diabetes mellitus, CKD stage 3, history of rectal cancer status post neoadjuvant chemotherapy with prior history of loop ileostomy in 06/[address] Baltazar Johnson status post reversal of ileostomy today, patient underwent closure of enterostomy, small bowel with small bowel resection and and anastomosis today. The patient has elevated BUN and creatinine for which we have been consulted. The patient has low magnesium and also low potassium. Multiple other comorbidities are present. No other associated findings. No other aggravating or relieving factors. Renal function is improving Electrolytes are stable Iron panel was noted, He was seen in the medical floor, in no acute distress No family at the bedside Prognosis remains guarded REVIEW OF SYSTEMS: GENERAL: Negative for any nausea, vomiting, fevers, chills, or weight loss. NEUROLOGIC: Negative for any blurry vision, blind spots, double vision, facial asymmetry, dysphagia, dysarthria, hemiparesis, hemisensory deficits, vertigo, ataxia. HEENT: Negative for any head trauma, neck trauma, neck stiffness, photophobia, phonophobia, sinusitis, rhinitis. CARDIAC: Negative for any chest pain, dyspnea on exertion, paroxysmal nocturnal dyspnea, peripheral edema. PULMONARY: Negative for any shortness of breath, wheezing, COPD, or TB exposure. GASTROINTESTINAL: Negative for any abdominal pain, nausea, vomiting, bright red blood per rectum, melena. GENITOURINARY: Negative for any dysuria, hematuria, incontinence. INTEGUMENTARY: Negative for any rashes, cuts, insect bites. RHEUMATOLOGIC: Negative for any joint pains, photosensitive rashes, history of vasculitis or kidney problems. HEMATOLOGIC: Negative for any abnormal bruising, frequent infections or bleeding. Vital Signs (last 8hr) Date Time Temp Pulse Resp B/P (MAP) Pulse Ox O2 Delivery O2 Flow Rate FiO2 09/02/25 12:09 98.2 68 18 125/46 98 Room Air 09/02/25 08:06 98.2 68 18 129/65 97 Room Air 09/02/25 06:30 78 18 N/A Room Air 21 PHYSICAL EXAM: GENERAL: Alert and oriented x 3. No acute distress. Well-nourished. EYES: EOMI. Anicteric. HENT: Moist mucous membranes. No scleral icterus. No cervical lymphadenopathy. LUNGS: Clear to auscultation bilaterally. No accessory muscle use. CARDIOVASCULAR: Regular rate and rhythm. No murmur. No JVD. ABDOMEN: Soft, non-tender and non-distended. No palpable masses. EXTREMITIES: No edema. Non-tender. SKIN: No rashes or lesions. Warm. NEUROLOGIC: No focal neurological deficits. CN II-XII grossly intact, but not individually tested. PSYCHIATRIC: Cooperative. Appropriate mood and affect. Current Medications Medications (Trade) Dose Ordered Sig/Tiffanie Route PRN Reason Start Time Stop Time Status Last Admin Dose Admin Acetaminophen/ Hydrocodone Bitart (NORco 5/325MG) 1 tab Q4H PRN PO MODERATE PAIN (4-6) 08/31/25 10:00 09/05/25 09:59 Albuterol (DUOneb) 1 udvial Q6H PRN IH SHORTNESS OF BREATH 08/31/25 15:00 09/30/25 14:59 Aspirin (Aspirin 81mg Ec Tab) 81 mg DAILY PO 09/01/25 09:00 10/01/25 08:59 09/02/25 08:21 81 MG Atorvastatin Calcium (LIPItor 40MG) 80 mg HS PO 08/31/25 21:00 09/30/25 20:59 09/01/25 20:58 80 MG Enoxaparin Sodium (Lovenox) 30 mg DAILY SQ 09/01/25 09:00 10/01/25 08:59 09/02/25 08:22 30 MG Hydralazine HCl (APRESOLine 20MG INJ) 5 mg Q6H PRN IV ADMINISTER FOR SBP > 160 08/31/25 16:00 09/30/25 15:59 Insulin Human Regular (humuLIN R 100 UNIT/ML 3ML) INSULIN SLIDING SCAL... ACHS SQ 08/31/25 16:30 09/30/25 16:29 09/02/25 11:57 3 UNIT Lactated Ringer's 1,000 ml @ 75 mls/hr [id number] IV 08/31/25 10:00 09/01/25 08:52 DC 09/01/25 02:45 75 MLS/HR Lisinopril (Prinivil 5mg) 5 mg DAILY PO 09/01/25 09:00 09/01/25 09:18 DC 09/01/25 08:29 5 MG Magnesium Sulfate 50 ml @ 0 mls/hr PROTOCOL PRN IV MAGNESIUM PROTOCOL 09/01/25 10:30 10/01/25 10:29 09/02/25 06:02 25 MLS/HR Morphine Sulfate (morPHINE 4MG SYG) 4 mg Q3H PRN IV SEVERE PAIN (7-10) 08/31/25 10:00 09/07/25 09:59 Multivitamins Therapeutic (Multivitamin Tablet) 1 tab DAILY PO 09/01/25 09:00 10/01/25 08:59 09/02/25 08:20 1 TAB Ondansetron HCl (zoFRAN 4MG INJ) 4 mg Q4H PRN IVP NAUSEA 08/31/25 10:00 09/30/25 09:59 Pharmacy Profile Note (Lace Assessment) 1 each AD MISC 09/01/25 16:30 09/01/25 16:33 DC Sodium Polystyrene Sulfonate (kayEXALate 15 GM/60 ML) 15 gm Q2H PO 09/01/25 08:30 09/01/25 09:18 DC Sodium Chloride 1,000 ml @ 75 mls/hr [id number] IV 09/01/25 09:00 10/01/25 08:59 09/01/25 11:11 75 MLS/HR Tamsulosin HCl (FloMAX) 0.4 mg DAILY PO 09/01/25 09:00 10/01/25 08:59 09/02/25 08:21 0.4 MG Vitamin B Complex (Vitamin B-12) 500 mcg DAILY PO 09/01/25 09:00 10/01/25 08:59 09/02/25 08:20 500 MCG LABORATORY: [ ] Hematology Labs: Test 09/02/25 04:19 09/01/25 04:30 Range/Units White Blood Count 7.4 # 4.8-10.8 K/uL Red Blood Count 3.02 L 4.50-6.20 MIL/uL Hemoglobin 9.1 L 14.0-18.0 g/dL Hematocrit 26.8 L 42-54 % Mean Corpuscular Volume 88.7 79-99 fL Mean Corpuscular Hemoglobin 30.1 27.0-33.0 pg Mean Corpuscular Hemoglobin Concent 34.0 32.0-36.0 g/dL Red Cell Distribution Width 14.5 11.0-15.5 % Platelet Count 245 130-400 K/uL Mean Platelet Volume 9.9 7.5-10.5 fL Immature Granulocyte % (Auto) 0.5 0-1 % Neutrophils (%) (Auto) 73.0 40.0-77.0 % Lymphocytes (%) (Auto) 13.0 L 21.0-51.0 % Monocytes (%) (Auto) 12.4 3.0-13.0 % Eosinophils (%) (Auto) 0.8 0.0-8.0 % Basophils (%) (Auto) 0.3 0.0-5.0 % Neutrophils # (Auto) 5.4 1.8-7.7 K/uL Lymphocytes # (Auto) 1.0 1.0-4.8 K/uL Monocytes # (Auto) 0.9 0.1-1.0 K/uL Eosinophils # (Auto) 0.06 0.00-0.70 K/uL Basophils # (Auto) 0.02 0.00-0.20 K/uL Absolute Immature Granulocyte (auto 0.04 0-1 K/uL Nucleated Red Blood Cells 0.0 0.0-0.19 % White Cell Morphology Comment See comments Chemistry Labs: Test 09/02/25 12:00 09/02/25 11:32 09/02/25 04:19 08/31/25 17:26 Range/Units Magnesium Level 1.90 1.80-2.40 mg/dL Whole Blood Glucose 205 H 70-110 MG/DL Sodium Level 140 136-145 mmol/L Potassium Level 4.9 3.5-5.1 mmol/L Chloride Level 105 101-111 mmol/L Carbon Dioxide Level 26 21-32 mmol/L Blood Urea Nitrogen 20 H 7-18 mg/dL Creatinine 1.2 0.5-1.3 mg/dL Glomerular Filtration Rate Calc 64 >90 mL/min Random Glucose 142 H 70-105 mg/dL Total Calcium 8.8 8.5-10.1 mg/dL Phosphorus Level 3.9 2.5-4.9 mg/dL Iron Level 23 #L 65-175 mcg/dL Total Iron Binding Capacity 211 L 250-450 mcg/dL Percent Iron Saturation 10.9 L 30-44 % Ferritin 103 30-400 ng/mL Total Bilirubin 0.4 0.2-1.0 mg/dL Aspartate Amino Transf (AST/SGOT) 11 10-37 U/L Alanine Aminotransferase (ALT/SGPT) 17 12-78 U/L Alkaline Phosphatase 77 50-136 U/L Total Protein 6.2 6.0-8.3 g/dL Albumin 3.1 L 3.5-5.0 g/dL Bedside Glucose Comment Notified Nurse DIAGNOSTICS / RADIOLOGY: ASSESSMENT: Status post closure of ileostomy with closure of enterostomy with small-bowel resection and anastomosis by Dr. Baltazar Johnson, 08/31/2025 Hx of rectal cancer status post neoadjuvant chemotherapy followed by Oncology as outpatient, POA History of CKD stage 3, POA Anemia, POA Hypertension, POA Hyperlipidemia, POA Hyperkalemia Type 2 diabetes mellitus, POA Prior history of stroke in 2012, POA Remote history of prostate cancer status post radiation therapy, POA Long-term history of smoking, POA PLAN: Labs, diagnostic, radiologic exams reviewed and interpreted by myself and supervising physician. We have reviewed external records in detail Start Venofer 300 mg IV daily x 3 doses. Require close monitoring of renal function and electrolytes Order CBC, CMP, and electrolytes in am BiPAP as necessary, for respiratory distress Monitor blood pressure adjust medication doses as needed Avoid hypotensive episodes May use Dilaudid 0.5 mg IV every 6 hours as needed for severe pain Monitor blood sugars Strict intake, output, and daily weight should be monitored Please renally adjust medications Avoid nephrotoxic and nonsteroidal drugs Avoid contrast if possible Will continue to monitor renal function, anemia, electrolytes Treatment plan discussed with patient Questions were answered We have discussed with the other team physicians in detail about the care plan We will continue to monitor the patient closely ATTESTATION BY PHYSICIAN I have seen and examined the patient. I reviewed the documentation, medical decision making, and treatment plan as noted by the mid-level provider above. I agree with the findings and plan of care. CANDACE WHITMAN MD, [facility] Sep 02, 2025 14:29
--- NOTE | 2025-09-02 15:23 | PN ---
[facility] PROGRESS NOTE Date of Service: Sep 02, 2025 Time of Service: 15:17 SUBJECTIVE: 70-year-old male with history of hypertension, hyperlipidemia, type 2 diabetes mellitus, CKD stage 3, history of rectal cancer status post neoadjuvant chemotherapy with prior history of loop ileostomy in 06/[address] Baltazar Johnson status post reversal of ileostomy today, patient underwent closure of e nterostomy, small bowel with small bowel resection and and anastomosis today. Patient was seen post operatively, patient denies any significant chest pain, pleurisy, shortness of breath, wheezing, abdominal pain, nausea and vomiting. Patient states that he was recently hospitalized in [facility] [place] for acute on chronic renal failure and hyperkalemia in his renal function has stabilized. His last creatinine was close to 1.4 On 08/28/2025. Patient states that currently his pain is controlled and denies any significant discomfort otherwise. Hospitalist service was consulted for medical management of the patient. We will follow this patient closely postoperatively. Patient states that he smokes about five cigarettes daily and he has long-term history of smoking for greater than 30 years. He denies any previous history of COPD, emphysema, bronchitis, asthma etc. denies any previous pulmonary issues otherwise. Patient reports that he is working on quitting smoking. 09/01 Patient was examined on the bedside. The patient had surgery yesterday. The patient complained of no chest pain or shortness of blood. Patient is postop day 1. The operation site is clean and covered in dressing The patient had potassium level of 5.8 after which an EKG were ordered that showed no significant abnormalities and the patient was started on Lokelma and lisinopril was stopped. We will recheck potassium in the evening. Patient magnesium was 1.50 therefore the potassium was replaced. 09/02 The patient was examined bedside. The patient had change the dressing overnight is complaining of no pain. Patient is postop day 2. The repeat potassium in the evening yesterday was 4.8. Today the patient potassium is 4.9. Patient's iron profile showed iron deficiency therefore Nephrology ordered for iron sucrose transfusion. The patient complains of no chest pain or shortness of breaths. The medical team was consulted for the medical management of the patient. Lisinopril will be discontinued because of patient's episode of hyperkalemia. We would be signing off from medical management at this time REVIEW OF SYSTEMS CONSTITUTIONAL: Denies fevers, chills, or night sweats. No unintentional weight loss reported. NEUROLOGICAL: Denies headache, amaurosis fugax, motor weakness, sensory deficit, vertigo/spinning sensation, gait abnormalities, or tremors. ENT: No hearing loss, otalgia, otorrhea, rhinitis, rhinorrhea, hoarseness, or sore throat. CARDIOVASCULAR: Denies any exertional angina, dyspnea on exertion, orthopnea, paroxysmal nocturnal dyspnea, palpitations, life-threatening arrhythmias, claudication. PULMONARY: Denies any shortness of breath, cough, phlegm/sputum, hemoptysis, pleuritic chest pain. SLEEP: Denies morning headaches, daytime somnolence or napping. Denies difficulty falling asleep, staying asleep, waking from sleep. Denies knowledge of snoring. GASTROINTESTINAL: Denies any type of dysphagia to either liquids or solids. Denies nausea, vomiting, pyrosis, early satiety, abdominal pain, diarrhea, constipation, or changes in stool consistency or caliber. Denies coffee-ground emesis, hematemesis, hematochezia, or melanotic stools. GENITOURINARY: Denies frequency, urgency, nocturia, hematuria or incontinence (Storage/Irritative symptoms.) Low urinary stream, straining to void, urinary intermittency or hesitancy, splitting of the voiding stream, terminal dribbling. ENDOCRINOLOGIC: Denies polyuria, polydipsia, polyphagia or heat/cold intolerances. ONCOLOGIC: History of colorectal cancer PHYSICAL EXAM GENERAL APPEARANCE: The patient is awake, alert, and oriented, in no acute cardiopulmonary distress. NEUROLOGICAL: Cranial nerves II-XII grossly intact. Motor is 5/5 in bilateral upper and lower extremities proximal to distal. No sensory deficits. HEENT: Face is symmetric. Pupils are equal and reactive. Extraocular movements are intact. NECK: Supple. No JVD. No thyromegaly. No submental, submandibular, pre- /postauricular, occipital or supraclavicular lymphadenopathy. CHEST: Normal chest expansion. No Telemetry. LUNGS: Absence of any rales, rhonchi or any wheezing. CARDIOVASCULAR: Regular. S1 and S2 normal. No appreciable rubs, murmurs or gallops. ABDOMEN: Soft, surgical site noted to be in dressing, no active bleeding noted from the surgical site : Deferred. No Cotter. EXTREMITIES: Non-edematous and not cyanotic. No clubbing. Good capillary ref ill. SKIN: No skin breakdown. Vital Signs (last 8hr) Date Time Temp Pulse Resp B/P (MAP) Pulse Ox O2 Delivery O2 Flow Rate FiO2 09/02/25 14:28 98 Room Air* 0 21 09/02/25 12:09 98.2 68 18 125/46 98 Room Air 09/02/25 08:06 98.2 68 18 129/65 97 Room Air LABS: Laboratory: Test 09/02/25 12:00 09/02/25 11:32 09/02/25 04:19 09/01/25 23:48 Range/Units Magnesium Level 1.90 1.80-2.40 mg/dL Whole Blood Glucose 205 H 70-110 MG/DL White Blood Count 7.4 # 4.8-10.8 K/uL Red Blood Count 3.02 L 4.50-6.20 MIL/uL Hemoglobin 9.1 L 14.0-18.0 g/dL Hematocrit 26.8 L 42-54 % Mean Corpuscular Volume 88.7 79-99 fL Mean Corpuscular Hemoglobin 30.1 27.0-33.0 pg Mean Corpuscular Hemoglobin Concent 34.0 32.0-36.0 g/dL Red Cell Distribution Width 14.5 11.0-15.5 % Platelet Count 245 130-400 K/uL Mean Platelet Volume 9.9 7.5-10.5 fL Immature Granulocyte % (Auto) 0.5 0-1 % Neutrophils (%) (Auto) 73.0 40.0-77.0 % Lymphocytes (%) (Auto) 13.0 L 21.0-51.0 % Monocytes (%) (Auto) 12.4 3.0-13.0 % Eosinophils (%) (Auto) 0.8 0.0-8.0 % Basophils (%) (Auto) 0.3 0.0-5.0 % Neutrophils # (Auto) 5.4 1.8-7.7 K/uL Lymphocytes # (Auto) 1.0 1.0-4.8 K/uL Monocytes # (Auto) 0.9 0.1-1.0 K/uL Eosinophils # (Auto) 0.06 0.00-0.70 K/uL Basophils # (Auto) 0.02 0.00-0.20 K/uL Absolute Immature Granulocyte (auto 0.04 0-1 K/uL Nucleated Red Blood Cells 0.0 0.0-0.19 % Sodium Level 140 136-145 mmol/L Potassium Level 4.9 3.5-5.1 mmol/L Chloride Level 105 101-111 mmol/L Carbon Dioxide Level 26 21-32 mmol/L Blood Urea Nitrogen 20 H 7-18 mg/dL Creatinine 1.2 0.5-1.3 mg/dL Glomerular Filtration Rate Calc 64 >90 mL/min Random Glucose 142 H 70-105 mg/dL Total Calcium 8.8 8.5-10.1 mg/dL Phosphorus Level 3.9 2.5-4.9 mg/dL Iron Level 23 #L 65-175 mcg/dL Total Iron Binding Capacity 211 L 250-450 mcg/dL Percent Iron Saturation 10.9 L 30-44 % Ferritin 103 30-400 ng/mL Total Bilirubin 0.4 0.2-1.0 mg/dL Aspartate Amino Transf (AST/SGOT) 11 10-37 U/L Alanine Aminotransferase (ALT/SGPT) 17 12-78 U/L Alkaline Phosphatase 77 50-136 U/L Total Protein 6.2 6.0-8.3 g/dL Albumin 3.1 L 3.5-5.0 g/dL Urine Color COLORLESS YELLOW Urine Appearance CLEAR CLEAR Urine pH 5.0 5.0-8.0 Urine Specific [place] 1.011 1.001-1.031 Urine Protein NEGATIVE NEGATIVE mg/dL Urine Glucose (UA) NEGATIVE NEGATIVE mg/dL Urine Ketones NEGATIVE NEGATIVE mg/dL Urine Occult Blood NEGATIVE NEGATIVE Urine Nitrate NEGATIVE NEGATIVE Urine Bilirubin NEGATIVE NEGATIVE mg/dL Urine Urobilinogen 0.2 0.2-1.0 mg/dL Urine Leukocyte Esterase NEGATIVE NEGATIVE Deborah/uL Urine Random Creatinine 66.59 30-135 mg/dL Urine Random Sodium 90 40-220 mmol/l Urine Random Potassium 19 L 25-125 mmol/L Urine Random Chloride 104 L 110-250 mmol/L Test 09/01/25 04:30 08/31/25 17:26 Range/Units White Cell Morphology Comment See comments Bedside Glucose Comment Notified Nurse Current Medications Medications (Trade) Dose Ordered Sig/Tiffanie Route PRN Reason Start Time Stop Time Status Last Admin Dose Admin Acetaminophen/ Hydrocodone Bitart (NORco 5/325MG) 1 tab Q4H PRN PO MODERATE PAIN (4-6) 08/31/25 10:00 09/05/25 09:59 Albuterol (DUOneb) 1 udvial Q6H PRN IH SHORTNESS OF BREATH 08/31/25 15:00 09/30/25 14:59 Aspirin (Aspirin 81mg Ec Tab) 81 mg DAILY PO 09/01/25 09:00 10/01/25 08:59 09/02/25 08:21 81 MG Atorvastatin Calcium (LIPItor 40MG) 80 mg HS PO 08/31/25 21:00 09/30/25 20:59 09/01/25 20:58 80 MG Enoxaparin Sodium (Lovenox) 30 mg DAILY SQ 09/01/25 09:00 10/01/25 08:59 09/02/25 08:22 30 MG Hydralazine HCl (APRESOLine 20MG INJ) 5 mg Q6H PRN IV ADMINISTER FOR SBP > 160 08/31/25 16:00 09/30/25 15:59 Insulin Human Regular (humuLIN R 100 UNIT/ML 3ML) INSULIN SLIDING SCAL... ACHS SQ 08/31/25 16:30 09/30/25 16:29 09/02/25 11:57 3 UNIT Iron Sucrose (VenoFER) 300 mg Q24H IVP 09/02/25 14:30 09/02/25 14:30 DC Iron Sucrose 300 mg/Sodium Chloride 250 ml @ 83 mls/hr Q24H IV 09/02/25 15:00 09/04/25 18:01 Lactated Ringer's 1,000 ml @ 75 mls/hr [id number] IV 08/31/25 10:00 09/01/25 08:52 DC 09/01/25 02:45 75 MLS/HR Lisinopril (Prinivil 5mg) 5 mg DAILY PO 09/01/25 09:00 09/01/25 09:18 DC 09/01/25 08:29 5 MG Magnesium Sulfate 50 ml @ 0 mls/hr PROTOCOL PRN IV MAGNESIUM PROTOCOL 09/01/25 10:30 10/01/25 10:29 09/02/25 06:02 25 MLS/HR Morphine Sulfate (morPHINE 4MG SYG) 4 mg Q3H PRN IV SEVERE PAIN (7-10) 08/31/25 10:00 09/07/25 09:59 Multivitamins Therapeutic (Multivitamin Tablet) 1 tab DAILY PO 09/01/25 09:00 10/01/25 08:59 09/02/25 08:20 1 TAB Ondansetron HCl (zoFRAN 4MG INJ) 4 mg Q4H PRN IVP NAUSEA 08/31/25 10:00 09/30/25 09:59 Pharmacy Profile Note (Lace Assessment) 1 each AD MISC 09/01/25 16:30 09/01/25 16:33 DC Sodium Polystyrene Sulfonate (kayEXALate 15 GM/60 ML) 15 gm Q2H PO 09/01/25 08:30 09/01/25 09:18 DC Sodium Chloride 1,000 ml @ 75 mls/hr [id number] IV 09/01/25 09:00 10/01/25 08:59 09/01/25 11:11 75 MLS/HR Tamsulosin HCl (FloMAX) 0.4 mg DAILY PO 09/01/25 09:00 10/01/25 08:59 09/02/25 08:21 0.4 MG Vitamin B Complex (Vitamin B-12) 500 mcg DAILY PO 09/01/25 09:00 10/01/25 08:59 09/02/25 08:20 500 MCG DIAGNOSTICS / RADIOLOGY: [ ] ASSESSMENT: Status post closure of ileostomy with closure of enterostomy with small-bowel resection and anastomosis by Dr. Baltazar Johnson, 08/31/2025 Hx of rectal cancer status post neoadjuvant chemotherapy followed by Oncology as outpatient, POA History of CKD stage 3, POA Anemia, POA Hypertension, POA Hyperlipidemia, POA Hyperkalemia Type 2 diabetes mellitus, POA Prior history of stroke in 2012, POA Remote history of prostate cancer status post radiation therapy, POA Long-term history of smoking, POA PLAN: Hyperkalemia Potassium yesterday was 5.8. Patient was given Lokelma Repeat potassium in the evening yesterday showed 4.8 Today potassium is 4.9 Monitor potassium Stopped lisinopril yesterday. Patient's blood pressure is 129/65. Stopped lisinopril on discharge History of CKD stage 3 Creatinine 1.2 today Nephrology consulted Nephrology ordered urinary sodium (90), urine potassium (19), urine chloride (104), urine osmolality (pending), urinary creatinine (66.59) Nephrology ordered iron profile that showed iron deficiency therefore nephrology ordered iron sucrose transfusion. Status post closure of ileostomy with closure of enterostomy with small-bowel resection and anastomosis by Dr. Baltazar Johnson Patient on morphine and hydrocodone for pain as per need Surgery recommended to advanced right encourage ambulation. There also suggested plan for discharge in the next 24-48 hours Monitoring patient The medical team was consulted for the medical management of the patient. Lisinopril will be discontinued because of patient's episode of hyperkalemia. We will be signing off from medical management at this time ATTESTATION BY PHYSICIAN I have seen and examined the patient. I reviewed the documentation, medical decision making, and treatment plan as noted by the resident physician above. I agree with the findings and plan of care. TAYLOR MAYERS MD, SYED M MD Sep 02, 2025 15:23
[2025-09-02] MEDS: IRON SUCROSE COMPLEX 300 MG+/NS 250ML IV SCH (16:05)
--- NOTE | 2025-09-02 17:18 | DS ---
Discharge Summary Assessment ileostomy status Diabetes History of rectal cancer Hospital Course No acute events overnight. Patient has tolerated soft diet w/o any n/v. BBS are clear. Abdomen is soft and not distended. His wound care has been done and patient and son have been educated on it. Home care instructions with wound care and ER warnings given. He is to keep f/u appt at [facility] in 2 weeks. He and son verbalized understanding and agreement. KIMBERLY SOTO Sep 02, 2025 17:18
--- NOTE | 2025-09-02 18:39 | NUR ---
PATIENT DISCHARGED PATIENT DISCHARGED. PERIPHERAL IV DISCONTINUED CATHETER INTACT. DISCHARGE INSTRUCTIONS GIVEN. PATIENT AWARE TO F/U WITH PCP. PATIENT AWARE TO KEEP SCHEDULED APPT WITH [facility] IN 2 WEEKS. PATIENT PROVIDED EDUCATION AND SUPPLIES ON INCISION CARE. ALL QUESTIONS ANSWERED. PATIENT TAKEN DOWN BY WHEELCHAIR. ALL BELONGINGS SENT WITH PATIENT.
== END 2025-09-02 18:40 | disposition home or self-care (01) | DRG 330 ==
LOC: DAHIP 08-31 06:15 → 4CH 08-31 11:08
PROVIDERS: ADMIT Internal Medicine; ATTEND Internal Medicine
PROC: 0DBB0ZZ Excision of Ileum, Open Approach (ICD-10-PCS; principal; 2025-08-31 08:49)
DX: Z43.2 Encounter for attention to ileostomy (principal); E87.1 Hypo-osmolality and hyponatremia; N17.9 Acute kidney failure, unspecified; K43.5 Parastomal hernia without obstruction or gangrene; D64.9 Anemia, unspecified; E11.22 Type 2 diabetes mellitus with diabetic chronic kidney disease; E61.1 Iron deficiency; E78.5 Hyperlipidemia, unspecified; E87.5 Hyperkalemia; F17.210 Nicotine dependence, cigarettes, uncomplicated; I12.9 Hypertensive chronic kidney disease with stage 1 through stage 4 chronic kidney disease, or unspecified chronic kidney disease; N18.30 Chronic kidney disease, stage 3 unspecified; Z85.048 Personal history of other malignant neoplasm of rectum, rectosigmoid junction, and anus; Z85.46 Personal history of malignant neoplasm of prostate; Z86.73 Personal history of transient ischemic attack (TIA), and cerebral infarction without residual deficits; Z92.21 Personal history of antineoplastic chemotherapy; Z92.3 Personal history of irradiation; Z79.899 Other long term (current) drug therapy
CPT/HCPCS: 36415; 80048; 80051; 80053; 81003; 82570; 82728; 82948; 83540; 83550; 83735; 83935; 84100; 84132; 85025; 85610; 85730; 86850; 86900; 86901; 88307; 93005; 94640; 94664; 94760; A4606; A6266; G0378; J0330; J0612; J1100; J1335; J1650; J1756; J1815; J2003; J2250; J2371; J2405; J2704; J2710; J3010; J3475; J3490; J7030; J7050; J7070; A4213; A4215; A4216; A4221; A4222; A4223; A4649; A4663; A4930; A6260; J0665